=== PATIENT | female | born 1975 | race Caucasian/White ===

== ENCOUNTER 2018-06-24 08:09 | Emergency (ER) | payer BC ==
[2018-06-24 08:24] VITALS: BP 115/89
--- NOTE | 2018-06-24 08:24 | UC ---
UC General HPI - HPI Summary HPI Summary: Patient is a 42 year old female, who present today to the urgent care with flu like for past 2 days. She reports cough which is nonproductive along with body aches and fever up to 101F.she denies any sore throat or difficulty with swallowing. had some associated nausea but no vomiting She was exposed to flu last week. Denies any chest pain or shortness of breath . Denies any abdominal pain , diarrhea or constipation. taking ibuprofen as needed for fever - History of Current Complaint Stated Complaint: FLU LIKE SYMP Time Seen by Provider: 06/24/18 08:18 Hx Obtained From: Patient - Allergy/Home Medications Allergies/Adverse Reactions: Allergies Allergy/AdvReac Type Severity Reaction Status Date / Time No Known Allergies Allergy Verified 06/30/14 10:32 Home Medications: Home Medications Cholecalciferol TAB* [Vitamin D TAB*] 06/24/18 [History] Ibuprofen TAB* [Motrin TAB* 400 MG] 06/24/18 [History] PMH/Surg Hx/FS Hx/Imm Hx - Additional Past Medical History Additional PMH: no significant past medical history Previously Healthy: Yes - Social History Alcohol Use: None Substance Use Type: None Smoking Status (MU): Never Smoked Tobacco Have You Smoked in the Last Year: No - Immunization History Most Recent Influenza Vaccination: received at work Most Recent Tetanus Shot: unknown\ Most Recent Pneumonia Vaccination: none Review of Systems All Other Systems Reviewed And Are Negative: Yes Constitutional: Positive: Fever, Chills Skin: Positive: Negative Eyes: Positive: Negative ENT: Negative: Sore Throat, Ear Ache Respiratory: Positive: Cough. Negative: Shortness Of Breath Cardiovascular: Positive: Negative. Negative: Chest Pain Gastrointestinal: Positive: Nausea. Negative: Vomiting Genitourinary: Positive: Negative Motor: Positive: Negative Neurovascular: Positive: Negative Musculoskeletal: Positive: Negative Neurological: Positive: Negative Psychological: Positive: Negative Is Patient Immunocompromised?: No Physical Exam - Summary Physical Exam Summary: Physical Exam: Const: Appears well. No signs of apparent distress present. Alert and oriented x 3. Musculo: Walks with a normal gait. Head/Face: Atraumatic, normocephalic on inspection. Eyes: EOMI and PERRLA in both eyes. Conjunctivae clear. No discharge noted ENT: Hearing normal, TM normal appearing bilaterally No tenderness to palpation on maxillary and frontal sinus. minimal pharyngeal erythemawithout any exudates . Uvula is midline. bilateral submandibular lymphadenopathy noted. nontender Respiratory: Respirations are unlabored. Lungs clear to auscultation bilaterally, no wheezing , rhonchi or rales noted . CVS: Regular rate and Rhythm, S1S2 normal , no murmurs identified. Extremities: Peripheral circulation is grossly normal. Pulses 2+ Abdomen : Soft non tender , nondistended , Bowel sounds present . No guarding , rebound tenderness or rigidity noted. Skin: No lesions or rash located on the upper extremities or on the lower extremities. Neuro: Cranial nerves II to XII intact, motor and sensory intact. DTR Intact bilaterally. Mood is normal. Affect is normal. Triage Information Reviewed: Yes Vital Signs Reviewed: Yes Course/Dx - Course Course Of Treatment: During the visit today, she tested negative for flu . We discussed the findings is likelyconsistent with a viral syndrome and self- limiting. will need supportive treatment only.Patient expressed understanding . - Diagnoses Provider Diagnosis: Viral syndrome Discharge - Sign-Out/Discharge Documenting (check all that apply): Patient Departure All imaging exams completed and their final reports reviewed: No Studies - Discharge Plan Condition: Stable Disposition: HOME Patient Education Materials: Viral Syndrome (ED) Referrals: Jessica Balbuena DO [Primary Care Provider] - 3 Days Additional Instructions: maintain hydration Ibuprofen or Tylenol as needed for fever Follow up with your primary care doctor in 2- 3 days. Return to Urgent care / ER if symptoms get worse. - Billing Disposition and Condition Condition: STABLE Disposition: Home
[2018-06-24 08:53] LABS: Influenza A Molecular NEGATIVE (Negative); Influenza B Molecular NEGATIVE (Negative)
== END 2018-06-24 09:09 | disposition home or self-care (01) ==
LOC: UCEAST 08:09
DX: B34.9 Viral infection, unspecified (principal); R50.9 Fever, unspecified; R05 Cough; R11.0 Nausea
CPT/HCPCS: 99211; G0463